=== PATIENT | female | born 2000 | race Caucasian/White ===

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

== ENCOUNTER 2022-09-03 10:38 | Emergency (ER) | payer MEDICAID ==
[~2022-09-03] VITALS: Ht 154.9 cm; Wt 39.0 kg
[2022-09-03 11:35] LABS: Basophils # (auto) 0 10 ^3/uL (0-0.2); Basophils % (auto) 0.6 % (0.0-2.0); Eosinophils # (auto) 0.1 10 ^3/uL (0-0.8); Eosinophils % (auto) 0.9 % (0.0-7.0); Hematocrit 38.7 % (36.0-46.0); Hemoglobin 12.8 g/dL (12.2-16.2); Lymphocytes # (auto) 2.1 10 ^3/uL (0.4-5.4); Lymphocytes % (auto) 33.6 % (10.0-50.0); Mean Corpuscular Hemoglobin 27.4 pg (28.0-32.0); Mean Corpuscular Hgb Conc. 33.2 g/dL (32.0-36.0); Mean Corpuscular Volume 82.4 fL (80.0-100.0); Monocytes # (auto) 0.5 10 ^3/uL (0-1.3); Monocytes % (auto) 7.6 % (0.0-12.0); Neutrophils # (auto) 3.6 10 ^3/uL (1.6-8.6); Neutrophils % (auto) 57.3 % (37.0-80.0); Nucleated Red Blood Cells % 0.1 %; Red Cell Distribution Width 14.4 % (11.8-14.3); White Blood Cell 6.3 10^3/uL (4.4-10.8)
[2022-09-03 13:34] LABS: Urine WBC None Seen /hpf (0 - 5)
[2022-09-03 14:01] LABS: Urine Bacteria NONE SEEN /hpf (None Seen); Urine Blood 3+ /uL (Negative); Urine Specific Gravity 1.011 (1.001-1.035)
[2022-09-03] MEDS ORDERED: RHO (D) IMMUNE GLOBULIN 300 MCG INJ IM ONE (14:15)
[2022-09-03 14:51] VITALS: BP 116/75
== END 2022-09-03 18:22 | disposition home or self-care (01) ==
LOC: ER 10:38
DX: O20.0 Threatened abortion (principal); R10.2 Pelvic and perineal pain; Z3A.01 Less than 8 weeks gestation of pregnancy
CPT/HCPCS: 36415; 81001; 84702; 85025; 86901

== ENCOUNTER 2023-09-10 18:20 | Observation (INO) | payer MEDICAID ==
[2023-09-11] MEDS ORDERED: PREN-96 PO (10:15)
== END 2023-09-10 19:43 | disposition home or self-care (01) ==
LOC: LDRP 18:20
PROVIDERS: ADMIT Obstetrics & Gynecology; ATTEND Obstetrics & Gynecology
DX: O62.9 Abnormality of forces of labor, unspecified (principal); Z3A.39 39 weeks gestation of pregnancy
CPT/HCPCS: 59025; 81002; 94760; G0378

== ENCOUNTER 2023-09-11 07:59 | Observation (INO) | payer MEDICAID ==
[2023-09-11] MEDS ORDERED: PREN-96 PO (10:15)
[2023-09-13 09:06] LABS: Neisseria gonorrhoeae, NAA Negative (Negative)
[2023-09-14 20:06] LABS: Chlamydia Trachomatis, NAA Positive (Negative)
== END 2023-09-11 10:25 | disposition home or self-care (01) ==
LOC: LDRP 07:59 → UNDOADMOB 07:59 → LDRP 08:11 → UNDODISOB 10:25
PROVIDERS: ADMIT Obstetrics & Gynecology; ATTEND Obstetrics & Gynecology
DX: Z34.83 Encounter for supervision of other normal pregnancy, third trimester (principal); Z3A.39 39 weeks gestation of pregnancy
CPT/HCPCS: 59025; 81002; 87491; 87591; 94760; G0378

== ENCOUNTER 2023-09-11 13:44 | Inpatient (IN) | payer MEDICAID ==
[~2023-09-11] VITALS: Ht 154.9 cm; Wt 52.2 kg
[~2023-09-11 13:44] MED LIST: PREN-96 PO
[2023-09-11] MEDS ORDERED: LIDOCAINE 2%HCL (LOCAL ANESTH.) INJ 20ML MDV IJ PRN (14:00)
[2023-09-11] MEDS ORDERED: BUTORPHANOL TARTRATE 2 MG/1 ML VIAL IV PRN ×2 (14:00)
[2023-09-11] MEDS ORDERED: NALOXONE HCL 0.4 MG/ML VIAL IV ONE (14:00)
[2023-09-11] MEDS ORDERED: ePHEDrine SULFATE 50 MG/ML AMP IV ONE (14:00)
[2023-09-11 15:00] LABS: INR 0.96 (0.9-1.15); Partial Thromboplastin Time 26.3 SEC (24.5-34.5); Prothrombin Time 10.2 sec (9.3-11.8)
[2023-09-11 15:01] LABS: Albumin 3.9 g/dL (3.2-4.8); Alkaline Phosphatase 211 U/L (46-116); Anion Gap 11 (5-15); Aspartate Aminotransferase 14 U/L (13-40); Calcium 9.2 mg/dL (8.5-10.1); Carbon Dioxide 21 mmol/L (20-30); Chloride 108 mmol/L (98-107); Glucose 78 mg/dL (74-106); Potassium 2.8 mmol/L (3.5-5.1); Sodium 140 mmol/L (136-145)
[2023-09-11 15:02] LABS: Alanine Aminotransferase < 9 U/L (7-40); BUN/Creatinine Ratio 8.2 (10.0-20.0); Bilirubin, Total 0.6 mg/dL (0.2-1.0); Blood Urea Nitrogen < 5 mg/dL (9-23); Total Protein 6.8 g/dL (5.7-8.2)
[2023-09-11] MEDS: LACTATED RINGER'S 1,000 ML IV ONE (15:13)
[2023-09-11] MEDS: ROPIVACAINE HCL 200 ML ONE (15:18)
[2023-09-11 15:24] LABS: Basophils # (auto) 0 10 ^3/uL (0-0.2); Basophils % (auto) 0.3 % (0.0-2.0); Eosinophils # (auto) 0 10 ^3/uL (0-0.8); Hematocrit 27.4 % (36.0-46.0); Hemoglobin 8.3 g/dL (12.2-16.2); Lymphocytes # (auto) 1.5 10 ^3/uL (0.4-5.4); Mean Corpuscular Hemoglobin 20.4 pg (28.0-32.0); Mean Corpuscular Hgb Conc. 30.4 g/dL (32.0-36.0); Mean Corpuscular Volume 67.3 fL (80.0-100.0); Monocytes # (auto) 0.6 10 ^3/uL (0-1.3); Monocytes % (auto) 5.6 % (0.0-12.0); Neutrophils % (auto) 79.1 % (37.0-80.0); Nucleated Red Blood Cells % 0.1 %; Red Blood Cells 4.07 10^6/uL (4.0-5.20); Red Cell Distribution Width 18.9 % (11.8-14.3); White Blood Cell 10.1 10^3/uL (4.4-10.8)
[2023-09-11] MEDS: LACTATED RINGER'S 1,000 ML IV SCH (15:34)
[2023-09-11] MEDS: DERMOPLAST 60ML BOTTLE TOP PRN (16:47)
[2023-09-11] MEDS: WITCH HAZEL-GLYCERIN PAD TOP PRN (16:47)
[2023-09-11] MEDS: PHISODERM TOP SOLN 240ML BTL TOP PRN (16:48)
[2023-09-11] MEDS ORDERED: LABETALOL HCL 5 MG/ML 4ML SYRINGE IV PRN (17:30)
[2023-09-11] MEDS ORDERED: hydrALAZINE HCL 20 MG/ML VL IV PRN (17:30)
[2023-09-11 18:27] LABS: Urine Bacteria FEW /hpf (None Seen); Urine Blood 2+ /uL (Negative); Urine Clarity Turbid (Clear); Urine Color Light-Yellow (Yellow); Urine Protein, UAD 1+ (Negative); Urine Specific Gravity 1.007 (1.001-1.035); Urine Urobilinogen Normal (Negative); Urine WBC 32 /hpf (0 - 5); Urine pH 6.5 (5.0-9.0)
[2023-09-11 18:38] LABS: Protein, Urine 95.7 mg/dL (0.0-11.9)
[2023-09-11 18:41] LABS: Amphetamine Screen, Urine Neg (NEGATIVE); Barbiturate Scree,Urine Neg (NEGATIVE); Benzodiazephine Screen, Urine Neg (NEGATIVE); Cannabinoid Screen, Urine Neg (NEGATIVE); Cocaine Screen, Urine Neg (NEGATIVE); Creatinine, Urine 64.57 mg/dL (30.0-125.0); Opiate Scree,Urine Neg (NEGATIVE); Phencyclidine Screen, Urine Neg (NEGATIVE); Urine Protein/Creatinine Ratio 1.48
[2023-09-11] MEDS ORDERED: miSOPROStol 100 mcg TAB SL PRN (18:45)
[2023-09-11] MEDS ORDERED: METHYLERGONOVINE MALEATE 0.2 MG/ML AMP IM PRN (18:45)
[2023-09-11] MEDS ORDERED: miSOPROStol 100 mcg TAB PR PRN (18:45)
[2023-09-11] MEDS ORDERED: CARBOPROST TROMETHAMINE 250 MCG/1ML VIAL IM PRN (18:45)
[2023-09-11] MEDS: ONDANSETRON HCL 4 MG/2 ML VIAL IV PRN (19:57)
[2023-09-11] MEDS ORDERED: GENTAMICIN PER PHARMACY 0 ML IV SCH (20:45)
[2023-09-11] MEDS: POTASSIUM CHL 20 Meq TABLET PO SCH (21:08)
[2023-09-11] MEDS: ACETAMINOPHEN 650 MG RECT SUPP PR PRN (21:43)
[2023-09-11] MEDS ORDERED: DIPHENOXYLATE W/ATROPINE 2.5 MG TAB PO SCH (22:00)
[2023-09-11] MEDS: GENTAMICIN SULFATE 260 MG in D5W 5% 100 ML IV SCH (22:02)
[2023-09-11] MEDS ORDERED: CLINDAMYCIN 900MG IV 50 ML IV ONE (23:00)
[2023-09-11] MEDS: CLINDAMYCIN 900MG IV 0 ML IV ONE (23:04)
[2023-09-11] MEDS ORDERED: MORPHINE SULF PF 5 MG/10 ML VIAL ONE (23:10)
[2023-09-11] MEDS: AMPICILLIN SOD 2GM INJ 2 GM in SODIUM CHL 0.9% 100 ML IV SCH (23:12)
[2023-09-11] MEDS ORDERED: LIDOCAINE 1% (LOCAL ANESTH.) PF 5ml SDV ONE (23:12)
[2023-09-11] MEDS ORDERED: LIDOCAINE HCL 2 %PF INJ 10ML AMP IJ ONE ×2 (23:14→23:22)
[2023-09-11] MEDS ORDERED: ePHEDrine SULFATE 50 MG/ML AMP ONE (23:32)
[2023-09-11] MEDS: AZITHROMYCIN 500MG/ 250ML 250 ML IV ONE (23:58)
[2023-09-12] MEDS: ROPIVACAINE HCL 200 ML ONE (01:34)
[2023-09-12] MEDS: LACT. RINGERS/OXYTOCIN 20UNITS 1,000 ML IV SCH (01:36)
[2023-09-12] MEDS: LACT. RINGERS/OXYTOCIN 20UNITS 500 ML IV ONE ×2 (02:47→03:09)
[2023-09-12] MEDS ORDERED: METHYLERGONOVINE MALEATE 0.2 MG/ML AMP IM PRN (03:00)
[2023-09-12] MEDS ORDERED: ONDANSETRON ODT 4 MG TAB PO PRN (03:00)
[2023-09-12] MEDS ORDERED: LACT. RINGERS/OXYTOCIN 20UNITS 500 ML IV ONE ×2 (03:00→03:30)
[2023-09-12] MEDS ORDERED: ACETAMINOPHEN 325 MG TAB PO PRN (03:00)
[2023-09-12 03:16] LABS: Eosinophils # (auto) 0 10 ^3/uL (0-0.8); Mean Corpuscular Volume 67.5 fL (80.0-100.0); Nucleated Red Blood Cells % 0.1 %; Red Cell Distribution Width 18.9 % (11.8-14.3)
[2023-09-12 03:19] LABS: Basophils # (auto) 0.1 10 ^3/uL (0-0.2); Basophils % (auto) 0.4 % (0.0-2.0); Hematocrit 27.1 % (36.0-46.0); Hemoglobin 8.4 g/dL (12.2-16.2); Lymphocytes % (auto) 5.2 % (10.0-50.0); Mean Corpuscular Hemoglobin 20.9 pg (28.0-32.0); Monocytes # (auto) 1.5 10 ^3/uL (0-1.3); Monocytes % (auto) 7.8 % (0.0-12.0); Neutrophils # (auto) 16.5 10 ^3/uL (1.6-8.6); Neutrophils % (auto) 86.6 % (37.0-80.0); Red Blood Cells 4.01 10^6/uL (4.0-5.20); White Blood Cell 19.1 10^3/uL (4.4-10.8)
[2023-09-12 03:35] LABS: Hypochromia Moderate; Platelet Estimate Adequate; Stomatocytes Few
[2023-09-12 03:36] LABS: Ovalocytes MANY; Polychromasia Slight
[2023-09-12 03:38] LABS: Magnesium 1.4 mg/dL (1.6-2.6)
[2023-09-12 03:39] LABS: Albumin 3.4 g/dL (3.2-4.8); Alkaline Phosphatase 184 U/L (46-116); Anion Gap 11 (5-15); Aspartate Aminotransferase 20 U/L (13-40); Calcium 8.9 mg/dL (8.7-10.4); Carbon Dioxide 19 mmol/L (20-30); Chloride 109 mmol/L (98-107); Glucose 103 mg/dL (74-106); Potassium 3.6 mmol/L (3.5-5.1); Sodium 139 mmol/L (136-145)
[2023-09-12 03:40] LABS: Alanine Aminotransferase < 9 U/L (7-40); BUN/Creatinine Ratio 5.9 (10.0-20.0); Bilirubin, Total 0.9 mg/dL (0.2-1.0); Blood Urea Nitrogen < 5 mg/dL (9-23); Phosphorus 2.5 mg/dL (2.4-5.1); Total Protein 6.3 g/dL (5.7-8.2)
[2023-09-12] MEDS: LABETALOL HCL 200 MG TAB PO ONE ×2 (03:58→06:05)
[2023-09-12] MEDS: IBUPROFEN 800 MG TAB PO SCH ×2 (03:59→10:16)
[2023-09-12] MEDS: AMMONIA 0.33 ML INHALANT IN ONE (04:31)
[2023-09-12 07:30] VITALS: BP 140/79; PULSE 79; RESP 18; RESP 20; TEMP 98; O2SAT 98
[2023-09-12] MEDS ORDERED: MAGNESIUM SULFATE 1GM/100ML 100 ML IV ONE (08:30)
[2023-09-12 08:45] VITALS: BP 116/72
[2023-09-12 08:53] LABS: Basophils # (auto) 0 10 ^3/uL (0-0.2); Basophils % (auto) 0.1 % (0.0-2.0); Eosinophils # (auto) 0 10 ^3/uL (0-0.8); Monocytes # (auto) 1.9 10 ^3/uL (0-1.3); Red Cell Distribution Width 18.8 % (11.8-14.3)
[2023-09-12 08:55] LABS: Hematocrit 22.4 % (36.0-46.0); Lymphocytes # (auto) 1.2 10 ^3/uL (0.4-5.4); Lymphocytes % (auto) 5.6 % (10.0-50.0); Mean Corpuscular Hemoglobin 20.6 pg (28.0-32.0); Mean Corpuscular Hgb Conc. 30.3 g/dL (32.0-36.0); Mean Corpuscular Volume 68.1 fL (80.0-100.0); Monocytes % (auto) 8.4 % (0.0-12.0); Neutrophils # (auto) 18.8 10 ^3/uL (1.6-8.6); Neutrophils % (auto) 85.9 % (37.0-80.0); Red Blood Cells 3.29 10^6/uL (4.0-5.20); White Blood Cell 21.9 10^3/uL (4.4-10.8)
[2023-09-12] MEDS: FERROUS SULFATE 325mg EC TAB PO SCH (08:55)
[2023-09-12 09:00] LABS: Chloride 111 mmol/L (98-107); Potassium 2.7 mmol/L (3.5-5.1); Sodium 140 mmol/L (136-145)
[2023-09-12 09:01] LABS: Anion Gap 8 (5-15); Calcium 8.6 mg/dL (8.5-10.1); Carbon Dioxide 21 mmol/L (20-30); Hemoglobin 6.8 g/dL (12.2-16.2)
[2023-09-12 09:06] LABS: Glucose 171 mg/dL (74-106)
[2023-09-12 09:13] LABS: BUN/Creatinine Ratio 6.9 (10.0-20.0); Blood Urea Nitrogen < 5 mg/dL (9-23)
[2023-09-12] MEDS: MAGNESIUM SULFATE 1GM/100ML 100 ML IV SCH (09:59)
[2023-09-12 11:00] VITALS: BP 124/82; PULSE 77; RESP 18; TEMP 98.1; O2SAT 98
[2023-09-12] MEDS: AMPICILLIN SOD 2GM INJ 2 GM in SODIUM CHL 0.9% 100 ML IV SCH (11:12)
[2023-09-12 15:20] VITALS: BP 136/74; PULSE 66; RESP 16; TEMP 97.9; O2SAT 98
[2023-09-12 15:47] LABS: Basophils # (auto) 0.1 10 ^3/uL (0-0.2); Eosinophils # (auto) 0 10 ^3/uL (0-0.8); Hemoglobin 7.3 g/dL (12.2-16.2); Mean Corpuscular Hgb Conc. 30.7 g/dL (32.0-36.0); Monocytes # (auto) 1.5 10 ^3/uL (0-1.3); Red Blood Cells 3.52 10^6/uL (4.0-5.20)
[2023-09-12 15:49] LABS: Basophils % (auto) 0.3 % (0.0-2.0); Hematocrit 23.8 % (36.0-46.0); Lymphocytes # (auto) 2.4 10 ^3/uL (0.4-5.4); Lymphocytes % (auto) 10.5 % (10.0-50.0); Mean Corpuscular Hemoglobin 20.7 pg (28.0-32.0); Mean Corpuscular Volume 67.5 fL (80.0-100.0); Monocytes % (auto) 6.5 % (0.0-12.0); Neutrophils # (auto) 18.9 10 ^3/uL (1.6-8.6); Neutrophils % (auto) 82.7 % (37.0-80.0); Red Cell Distribution Width 19.5 % (11.8-14.3); White Blood Cell 22.8 10^3/uL (4.4-10.8)
[2023-09-12 16:43] LABS: Alkaline Phosphatase 160 U/L (46-116); Anion Gap 6 (5-15); BUN/Creatinine Ratio 7.2 (10.0-20.0); Blood Urea Nitrogen 5 mg/dL (9-23); Calcium 8.9 mg/dL (8.5-10.1); Carbon Dioxide 24 mmol/L (20-30); Chloride 110 mmol/L (98-107); Glucose 127 mg/dL (74-106); Potassium 3.1 mmol/L (3.5-5.1); Sodium 140 mmol/L (136-145)
[2023-09-12 16:44] LABS: Albumin 2.9 g/dL (3.2-4.8); Aspartate Aminotransferase 20 U/L (13-40); Bilirubin, Total 0.4 mg/dL (0.2-1.0); Total Protein 5.1 g/dL (5.7-8.2)
[2023-09-12 16:46] LABS: Alanine Aminotransferase < 9 U/L (7-40)
[2023-09-12] MEDS: POTASSIUM CHL 20 Meq TABLET PO SCH ×2 (17:59→22:36)
[2023-09-12 19:00] VITALS: BP 131/64; PULSE 53; RESP 16; TEMP 98; O2SAT 97
[2023-09-12] MEDS: DOCUSATE SOD 100 MG CAP PO SCH (22:35)
[2023-09-12 23:30] VITALS: BP 143/81; PULSE 63; RESP 18; TEMP 97.9; O2SAT 97
[2023-09-13] VITALS (10 sets, daily range): BP systolic 132–152; BP diastolic 72–90; PULSE 58–83; RESP 16–18; TEMP 97.7–98.2; O2SAT 95–98
[2023-09-13] MEDS: GENTAMICIN SULFATE 260 MG in D5W 5% 100 ML IV ONE (02:28)
[2023-09-13 04:22] LABS: Basophils # (auto) 0 10 ^3/uL (0-0.2); Basophils % (auto) 0.2 % (0.0-2.0); Eosinophils # (auto) 0.1 10 ^3/uL (0-0.8); Hematocrit 21.4 % (36.0-46.0); Monocytes # (auto) 1.1 10 ^3/uL (0-1.3)
[2023-09-13 04:24] LABS: Eosinophils % (auto) 0.3 % (0.0-7.0); Lymphocytes # (auto) 2.6 10 ^3/uL (0.4-5.4); Lymphocytes % (auto) 14.6 % (10.0-50.0); Mean Corpuscular Hemoglobin 20.2 pg (28.0-32.0); Mean Corpuscular Hgb Conc. 30.1 g/dL (32.0-36.0); Mean Corpuscular Volume 67.2 fL (80.0-100.0); Monocytes % (auto) 6.2 % (0.0-12.0); Neutrophils # (auto) 14.1 10 ^3/uL (1.6-8.6); Neutrophils % (auto) 78.7 % (37.0-80.0); Red Blood Cells 3.19 10^6/uL (4.0-5.20); White Blood Cell 17.9 10^3/uL (4.4-10.8)
[2023-09-13 04:26] LABS: Hemoglobin 6.4 g/dL (12.2-16.2)
[2023-09-13 04:32] LABS: Albumin 2.6 g/dL (3.2-4.8); Alkaline Phosphatase 131 U/L (46-116); Anion Gap 5 (5-15); Aspartate Aminotransferase 19 U/L (13-40); BUN/Creatinine Ratio 11.3 (10.0-20.0); Blood Urea Nitrogen 6 mg/dL (9-23); Calcium 8.6 mg/dL (8.7-10.4); Carbon Dioxide 24 mmol/L (20-30); Chloride 110 mmol/L (98-107); Glucose 95 mg/dL (74-106); Potassium 3.9 mmol/L (3.5-5.1); Sodium 139 mmol/L (136-145)
[2023-09-13 04:33] LABS: Bilirubin, Total 0.3 mg/dL (0.2-1.0); Total Protein 4.7 g/dL (5.7-8.2)
[2023-09-13 04:34] LABS: Alanine Aminotransferase < 9 U/L (7-40)
[2023-09-13] MEDS: IBUPROFEN 800 MG TAB PO PRN (08:35)
[2023-09-13 13:06] LABS: RPR Non Reactive (Non Reactive)
[2023-09-13 15:38] LABS: Basophils # (auto) 0.1 10 ^3/uL (0-0.2); Eosinophils # (auto) 0.1 10 ^3/uL (0-0.8); Monocytes # (auto) 1.1 10 ^3/uL (0-1.3)
[2023-09-13 15:39] LABS: Basophils % (auto) 0.4 % (0.0-2.0); Eosinophils % (auto) 0.5 % (0.0-7.0); Hemoglobin 9.8 g/dL (12.2-16.2); Lymphocytes # (auto) 2.1 10 ^3/uL (0.4-5.4); Lymphocytes % (auto) 11.3 % (10.0-50.0); Mean Corpuscular Hemoglobin 22.3 pg (28.0-32.0); Mean Corpuscular Hgb Conc. 31.5 g/dL (32.0-36.0); Mean Corpuscular Volume 70.8 fL (80.0-100.0); Monocytes % (auto) 5.7 % (0.0-12.0); Neutrophils # (auto) 15.6 10 ^3/uL (1.6-8.6); Neutrophils % (auto) 82.1 % (37.0-80.0); Nucleated Red Blood Cells % 0.2 %; Red Blood Cells 4.38 10^6/uL (4.0-5.20); White Blood Cell 18.9 10^3/uL (4.4-10.8)
[2023-09-13 15:50] LABS: Red Cell Distribution Width 20.6 % (11.8-14.3)
[2023-09-14 18:06] LABS: Treponema pallidum Ab (FTA-Ab) Non Reactive (Non Reactive)
== END 2023-09-13 17:15 | disposition home or self-care (01) | DRG 560 ==
LOC: LDRP 13:44 → OBSVTOIN 13:45 → LDRP 13:45
PROVIDERS: ADMIT Obstetrics & Gynecology; ATTEND Obstetrics & Gynecology
PROC: 10E0XZZ Delivery of Products of Conception, External Approach (ICD-10-PCS; principal; 2023-09-12)
PROC: 0HQ9XZZ Repair Perineum Skin, External Approach (ICD-10-PCS; 2023-09-12)
PROC: 3E0R3BZ Introduction of Anesthetic Agent into Spinal Canal, Percutaneous Approach (ICD-10-PCS; 2023-09-12)
PROC: 00HU33Z Insertion of Infusion Device into Spinal Canal, Percutaneous Approach (ICD-10-PCS; 2023-09-12)
PROC: 30233N1 Transfusion of Nonautologous Red Blood Cells into Peripheral Vein, Percutaneous Approach (ICD-10-PCS; 2023-09-13)
DX: O14.04 Mild to moderate pre-eclampsia, complicating childbirth (principal); Z37.0 Single live birth; O41.1230 Chorioamnionitis, third trimester, not applicable or unspecified; O71.4 Obstetric high vaginal laceration alone; O75.2 Pyrexia during labor, not elsewhere classified; E83.42 Hypomagnesemia; O75.89 Other specified complications of labor and delivery; O99.344 Other mental disorders complicating childbirth; O77.0 Labor and delivery complicated by meconium in amniotic fluid; O99.284 Endocrine, nutritional and metabolic diseases complicating childbirth; O76 Abnormality in fetal heart rate and rhythm complicating labor and delivery; E87.6 Hypokalemia; O90.81 Anemia of the puerperium; Z3A.39 39 weeks gestation of pregnancy
CPT/HCPCS: 36415; 36430; 59025; 59409; 62282; 80048; 80053; 80170; 80307; 81001; 81002; 82570; 83605; 83735; 84100; 84156; 85025; 85610; 85730; 86592; 86803; 86850; 86870; 86900; 86901; 86922; 94760; 94762; 96360; 96361; 96365; 96366; 96374; G0378; J2405; J2590; J3490; J7060

== ENCOUNTER 2024-04-10 16:20 | Emergency (ER) | payer MEDICAID ==
[~2024-04-10] VITALS: Ht 154.9 cm; Wt 38.8 kg
--- NOTE | 2024-04-10 17:36 | ED.PDOC ---
History of Present Illness HPI Comments 23F presents to the ER w/ and no prior Hx associated to the c/c of ABD pain. Pt reports on the RLQ ABD pain starting yesterday morning but worsened today w/ it being constant and radiating to the back. Pt is 13 weeks and has been having /D as well. Pt tried taking Tylenol for the pain but was unsuccessful. pain type of a 7/10. Pt is w/ the first being a miscarriage Denies chills, fever, N/V, SOB, CP or other associated symptom's, modifiers, or recent injuries or sick contact at this time. Chief Complaint: Urinary Time Seen by MD: 17:20 Primary Care Provider: RAMU Harding Notes: Nurses Notes, Medications, Allergies Allergies: Coded Allergies: Sulfamethoxazole w/Trimethoprim (Verified Allergy, Mild, 09/11/23) Pt. states gets nausea, vomiting, and stomach cramps. Home Meds Active Scripts Nitrofurantoin Monohydrate Mac (Macrobid) 100 Mg Cap, 100 MG PO BID for 5 Days, #10 CAP Prov:KELECHI MCMANUS MD 04/10/24 Reported Medications Vit W/ Ferrous Fumara ( One Daily) Daily Tab, 1 TAB PO DAILY, #90 TAB 3 Refills 09/11/23 Information Source: Patient, Spouse Mode of Arrival: Ambulatory Severity: Moderate Timing: Hours Duration: Since onset, Hours Prehospital treatment: None Associated signs and symptoms Right-sided abdominal pain Past Medical History PAST MEDICAL HISTORY: Denies Past Medical History (Other): Surgical History: Denies all surgeries TILE FITTER History: Denies all TILE FITTER Hx Family History Family History: Reviewed,noncontributory to illness, No family hx of DM Social History Smoker: Non-Smoker Alcohol: Denies ETOH Use Drugs: Denies Drug Use Lives In: Home Constitutional: denies: chills, diaphoresis, fatigue, fever, malaise, sweats, weakness, others EENTM: denies: blurred vision, double vision, ear bleeding, ear discharge, ear drainage, ear pain, ear ringing, eye pain, eye redness, hearing loss, mouth pain, mouth swelling, nasal discharge, nose bleeding, nose congestion, nose pain, photophobia, tearing, throat pain, throat swelling, voice changes, others Respiratory: denies: cough, hemoptysis, orthopnea, SOB at rest, shortness of breath, SOB with excertion, stridor, wheezing, others Cardiovascular: denies: chest pain, dizzy spells, diaphoresis, Dyspnea on exertion, edema, irregular heart beat, left arm pain, lightheadedness, palpitations, PND, syncope, others Gastrointestinal: reports: abdominal pain, diarrhea; denies: abdomen distended, blood streaked bowels, constipated, dysphagia, difficulty swallowing, hematemesis, melena, nausea, poor appetite, poor fluid intake, rectal bleeding, rectal pain, vomiting, others Genitourinary: reports: ; denies: abnormal vagina bleeding, burning, dyspareunia, dysuria, flank pain, frequency, hematuria, incontinence, pain, vagina discharge, urgency, others Neurological: denies: dizziness, fainting, headache, left sided numbness, left sided weakness, numbness, paresthesia, pre-existing deficit, right sided numbness, right sided weakness, seizure, speech problems, tingling, tremors, weakness, others Musculoskeletal: denies: back pain, gout, joint pain, joint swelling, muscle pain, muscle stiffness, neck pain, others Integumetry: denies: bruises, change in color, change in hair/nails, dryness, laceration, lesions, lumps, rash, wounds, others Allergic/Immunocompromised: denies: Difficulty Healing, Frequent Infections, Hives, Itching, others Hematologic/Lymphatic: denies: anemia, blood clots, easy bleeding, easy bruising, swollen glands, others Endocrine: denies: excessive hunger, excessive sweating, excessive thirst, excessive urination, flushing, intolerance to cold, intolerance to heat, unexplained weight gain, unexplained weight loss, others Psychiatric: denies: anxiety, bipolar disorder, depression, hopeless, panic disorder, schizophrenia, sleepless, suicidal, others All Other Systems: Reviewed and Negative Physical Exam General Appearance: Mild Distress HEENT: Normal ENT Inspection, Pharynx Normal, TMs Normal Neck: Full Range of Motion, Non-Tender, Normal, Normal Inspection Respiratory: Chest Non-Tender, Lungs Clear, No Accessory Muscle Use, No Respiratory Distress, Normal Breath Sounds Cardiovascular: No Edema, No JVD, No Murmur, No Gallop, Normal Peripheral Pulses, Regular Rate/Rhythm Breast Exam: Deferred Gastrointestinal: No Organomegaly, No Pulsatile Mass, Normal Bowel Sounds, RLQ, RUQ, Soft, Tenderness Genitalia: Deferred Pelvic: Deferred Rectal: Deferred Extremities: No calf tenderness, Normal capillary refill, Normal inspection, No rmal range of motion, Non-tender, No pedal edema Musculoskeletal : Apperance: Normal Neurologic: Alert, book author II-XII nml as Tested, No Motor Deficits, Normal Affect, Normal Mood, No Sensory Deficits Cerebellar Function: Normal Reflexes: Normal Skin: Dry, Normal Color, Warm Lymphatic: No Adenopathy Was a procedure done? Was a procedure done?: No Differential Dx Considerations may include: UTI, threatened , generalized weakness, dehydration X-Ray, Labs, Meds, VS Vital Signs Date Time Temp Pulse Resp B/P (MAP) Pulse Ox O2 Delivery O2 Flow Rate FiO2 04/10/24 16:56 97.4 84 17 119/67 (84) 100 Lab Test 04/10/24 17:53 04/10/24 17:00 Range/Units Beta HCG, Quantitative 30266.3 H 1.5-4.2 mIU/mL Urine Color Colorless Yellow Urine Clarity Ex.turbid Clear Urine pH 7.0 5.0-9.[address] [place] 1.013 1.001-1.035 Urine Protein Negative Negative Urine Ketones 1+ H Negative Urine Blood Trace H Negative /uL Urine Nitrite Negative Negative Urine Bilirubin Negative Negative Urine Urobilinogen Normal Negative mg/dL Urine Leukocyte Esterase Trace Negative /uL Urine RBC 13 0 - 4 /hpf Urine WBC 2 0 - 5 /hpf Urine Squamous Epithelial Cells Few <5 /hpf Urine Amorphous Crystals Few None Seen /hpf Urine Bacteria Few H None Seen /hpf Urine Mucus Few None Seen Urine Glucose Normal Normal mg/dL The urine test [place] [address] An ultrasound of the pelvis shows: IMPRESSION: 1. IUP single live fetus 13 weeks 1 day AUA corresponding to an DONNIE of 10/15/2024. 2. FHR: 157 bpm. At this time, the patient was being discharged The patient was given a prescription of Macrobid The patient will return to the emergency department's the condition worsens. Images Reviewed?: Images reviewed and evaluated by me Time of 1ST Reevaluation: 17:50 Reevaluation 1ST: Unchanged Patient Education/Counseling: Diagnosis, Treatment, Prognosis, Need For Follow Up Family Education/Counseling: Diagnosis, Treatment, Prognosis, Need For Follow Up Departure 1 Departure Time of Disposition: 18:49 Impression: Primary Impression: Abdominal pain in Qualified Codes: O26.899 - Other specified related conditions, unspecified trimester; R10.9 - Unspecified abdominal pain Additional Impression: UTI (urinary tract infection) Qualified Codes: N30.00 - Acute cystitis without hematuria Disposition: HOME / SELF CARE / HOMELESS Condition: Fair e-Prescriptions Nitrofurantoin Monohydrate Mac (Macrobid) 100 Mg Cap 100 MG PO BID for 5 Days, #10 CAP Prov: KELECHI MCMANUS MD 04/10/24 Discharged With: Self Critical Care Note Critical Care Time?: No Stability Stability form required: No Heart Score Heart Score: Heart Score Response (Comments) Value History N/A 0 EKG N/A 0 Age N/A 0 Risk Factors N/A 0 Troponin N/A 0 Total 0 I personally scribed for KELECHI MCMANUS MD ([email or web address]) on 04/10/24 at 17:36. Electronically submitted by Eduardo Carpenter ([email or web address]). KELECHI MCMANUS MD Apr 10, 2024 17:36
[2024-04-10 17:45] LABS: Urine Amorphous Crystal FEW /hpf (None Seen); Urine Bacteria FEW /hpf (None Seen); Urine Blood TRACE /uL (Negative); Urine Clarity Ex.Turbid (Clear); Urine Color Colorless (Yellow); Urine Mucus FEW (None Seen); Urine Protein, UAD Negative (Negative); Urine Specific Gravity 1.013 (1.001-1.035); Urine Squamous Epithelial Cell FEW /hpf (<5); Urine Urobilinogen Normal (Negative); Urine WBC 2 /hpf (0 - 5)
--- NOTE | 2024-04-10 17:59 | DVH ---
OB ULTRASOUND <14 WEEKS: HISTORY: pain TECHNIQUE: Multiple real-time grayscale sonographic images of the pelvis with duplex Doppler color f low, spectral and M-mode analysis. TRANSDUCERS: Transabdominal FINDINGS: The uterus measures 10.11 x 10.04 x 10.52 cm. Right ovary not visualized Left ovary not visualized IUP single live fetus at 13 weeks 1 day average ultrasound age based on mean crown-rump length of 6.8 6 cm. heart rate detected at 100 7 beats per minute. Small anechoic area in the placenta measuring 6 x 7 x 9 mm. IMPRESSION: 1. IUP single live fetus 13 weeks 1 day AUA corresponding to an DONNIE of 10/15/2024. 2. FHR: 157 bpm.
[2024-04-10] MEDS ORDERED: NITR-87 PO (18:51)
[2024-04-10 18:58] VITALS: BP 123/70; PULSE 74; RESP 16; TEMP 97.9; O2SAT 100
== END 2024-04-10 19:03 | disposition home or self-care (01) ==
LOC: ER 16:20
DX: O23.41 Unspecified infection of urinary tract in pregnancy, first trimester (principal); N39.0 Urinary tract infection, site not specified; O26.891 Other specified pregnancy related conditions, first trimester; M54.9 Dorsalgia, unspecified; R10.2 Pelvic and perineal pain; Z79.899 Other long term (current) drug therapy; Z3A.13 13 weeks gestation of pregnancy; Z88.1 Allergy status to other antibiotic agents; Z88.2 Allergy status to sulfonamides
CPT/HCPCS: 36415; 76801; 81001; 84702

== ENCOUNTER 2024-07-04 12:14 | Observation (INO) | payer MEDICAID ==
[~2024-07-04 12:14] MED LIST changes: +NITR-87 PO
--- NOTE | 2024-07-04 15:24 | DVH ---
EXAM: US OBSTERICAL LIMITED CLINICAL HISTORY: cramping/ COMPARISON: 04/10/2024 TECHNIQUE: Grayscale, color-flow Doppler, and spectral Doppler ultrasound of the pelvis is performed by transabdominal and transvaginal technique. Findings/Impression: Single live intrauterine in vertex presentation with heart rate of 145 bpm. Cervical os appears closed and measures 4.3 cm in length. Placenta is posterior in location without evidence of previa or abruption. CRYSTAL 9.9 cm, MVP 3.3 cm. Board Winder notes possible contraction appreciated.
--- NOTE | 2024-07-05 00:09 | DVHDS2 ---
Discharge Summary Date of Admission Jul 04, 2024 at 12:14 Date of Discharge: Jul 04, 2024 Admitting Diagnosis 25 wks decreased movement, cramping Brief Hx & Hospital Course: nst us Consults/Reason for consult none Operations or Procedures none Condition at Discharge: Good Final Diagnosis/Problems List reasuring fht and us 25 wks Discharge Disposition: Home SNF Discharge Will this Physician continue t: No Discharge Instruct/Medications Diet: Regular Activity: No Restrictions, As Tolerated Activity comment: kick counts labor precautions Follow Up/Referral: as scheduled Discharge Statement: "Patient was advised to return to the ER or call 911 if any headaches, dizziness, shortness of breath, chest pain, abdominal pain, bleeding, fevers, or worsening of medical condition. Patient was counseled about treatment plan, medications, possible side effects, patientverbalized understanding. All questions were answered to the best of my ability. This discharge took greater then 30 minutes in planning, reviewing documentation, counseling the patient, and discussing with other team members." ASSESSMENT ASSESSMENT Assessment Visit Coding OBGYN Date of Service: Jul 04, 2024 Billing Provider: JOSE L RAMIREZ DO CREDIT RESOLUTION REPRESENTATIVE Common Visit Codes: 93506-PGS/OBS SAME DATE (LOW), 81880-VNK/OBS SAME DATE (MOD), 85591-FWW/OBS SAME DATE (HIGH) CREDIT RESOLUTION REPRESENTATIVE Procedure Codes: 55471-94- NON-STRESS TEST JOSE L RAMIREZ DO Jul 05, 2024 00:09
== END 2024-07-04 15:45 | disposition home or self-care (01) ==
LOC: UNDOADMOB 12:14 → LDRP 12:14 → UNDODISOB 15:45
PROVIDERS: ADMIT Obstetrics & Gynecology; ATTEND Obstetrics & Gynecology
DX: O36.8120 Decreased fetal movements, second trimester, not applicable or unspecified (principal); O62.9 Abnormality of forces of labor, unspecified; Z98.890 Other specified postprocedural states; Z79.899 Other long term (current) drug therapy; Z3A.25 25 weeks gestation of pregnancy
CPT/HCPCS: 59025; 76815; 76817; 81002; 94760; G0378

== ENCOUNTER 2024-10-04 09:05 | Inpatient (IN) | payer MEDICAID ==
[~2024-10-04] VITALS: Ht 162.6 cm; Wt 68.0 kg
[2024-10-04] MEDS ORDERED: PENICILLIN G POT 5MIL/D5 50ML 50 ML IV ONE (09:15)
[2024-10-04] MEDS ORDERED: LIDOCAINE 2%HCL (LOCAL ANESTH.) INJ 20ML MDV IJ PRN (09:15)
[2024-10-04] MEDS ORDERED: WITCH HAZEL-GLYCERIN PAD TOP PRN (09:15)
[2024-10-04] MEDS ORDERED: NALBUPHINE HCL 10 MG/1ml INJECTION IV PRN (09:15)
[2024-10-04] MEDS ORDERED: PHISODERM TOP SOLN 240ML BTL TOP PRN (09:15)
[2024-10-04] MEDS ORDERED: DERMOPLAST 60ML BOTTLE TOP PRN (09:15)
[2024-10-04] MEDS ORDERED: NALBUPHINE HCL 10 MG/1ml INJECTION IM PRN (09:15)
[2024-10-04] MEDS ORDERED: MORPHINE SULF PF 5 MG/10 ML VIAL ONE (09:41)
[2024-10-04] MEDS ORDERED: fentaNYL CITRATE 100 MCG/2 ML VL ONE (09:41)
[2024-10-04 09:42] LABS: Basophils # (auto) 0.1 10 ^3/uL (0-0.2); Eosinophils # (auto) 0 10 ^3/uL (0-0.8); Eosinophils % (auto) 0.2 % (0.0-7.0); Mean Corpuscular Hgb Conc. 32.5 g/dL (32.0-36.0); Monocytes # (auto) 0.9 10 ^3/uL (0-1.3); Neutrophils # (auto) 9.7 10 ^3/uL (1.6-8.6); Nucleated Red Blood Cells % 0.1 %; Red Blood Cells 4.23 10^6/uL (4.0-5.20)
[2024-10-04 09:44] LABS: Basophils % (auto) 0.6 % (0.0-2.0); Hematocrit 30.3 % (36.0-46.0); Hemoglobin 9.8 g/dL (12.2-16.2); Lymphocytes % (auto) 15.7 % (10.0-50.0); Mean Corpuscular Hemoglobin 23.2 pg (28.0-32.0); Mean Corpuscular Volume 71.5 fL (80.0-100.0); Monocytes % (auto) 6.7 % (0.0-12.0); Neutrophils % (auto) 76.8 % (37.0-80.0); Platelet Count (auto) 258 10^3/uL (140-450); Red Cell Distribution Width 16.8 % (11.8-14.3); White Blood Cell 12.6 10^3/uL (4.4-10.8)
[2024-10-04] MEDS: NALOXONE HCL 0.4 MG/ML VIAL IV ONE (09:45)
[2024-10-04] MEDS: ePHEDrine SULFATE 50 MG/ML AMP ONE (09:48)
[2024-10-04 09:59] LABS: Anion Gap 13 (5-15); Bilirubin, Total 0.6 mg/dL (0.2-1.0); Calcium 9.4 mg/dL (8.7-10.4); Carbon Dioxide 22 mmol/L (20-31); Glucose 88 mg/dL (74-106); Sodium 142 mmol/L (136-145); Total Protein 6.5 g/dL (5.7-8.2)
[2024-10-04 10:03] LABS: Alanine Aminotransferase < 9 U/L (7-40); Alkaline Phosphatase 148 U/L (46-116); Aspartate Aminotransferase 12 U/L (13-40); BUN/Creatinine Ratio 8.5 (10.0-20.0); Blood Urea Nitrogen < 5 mg/dL (9-23); Chloride 107 mmol/L (98-107); Potassium 3.4 mmol/L (3.5-5.1)
[2024-10-04] MEDS ORDERED: ONDANSETRON HCL 4 MG/2 ML VIAL IV PRN (10:15)
[2024-10-04] MEDS ORDERED: DexAMETHasone SOD PHOS 10MG/1ML VIAL INJ IV PRN (10:15)
[2024-10-04] MEDS: NALBUPHINE HCL 10 MG/1ml INJECTION IV ONE (10:15)
[2024-10-04] MEDS ORDERED: NALOXONE HCL 0.4 MG/ML VIAL IV PRN (10:15)
[2024-10-04] MEDS: LACTATED RINGER'S 1,000 ML IV SCH (10:23)
[2024-10-04 10:30] LABS: Urine Bacteria None Seen /hpf (None Seen)
[2024-10-04 10:38] LABS: Urine Blood Negative /uL (Negative); Urine Clarity Clear (Clear); Urine Color Light-Yellow (Yellow); Urine Protein, UAD Negative (Negative); Urine Specific Gravity 1.005 (1.001-1.035); Urine Squamous Epithelial Cell FEW /hpf (<5); Urine Urobilinogen Normal (Negative); Urine WBC 1 /HPF (0-5); Urine pH 7.5 (5.0-9.0)
[2024-10-04 10:39] LABS: INR 0.95 (0.9-1.15); Prothrombin Time 10.1 sec (9.3-11.8)
[2024-10-04 10:54] LABS: Amphetamine Screen, Urine Neg (NEGATIVE); Barbiturate Scree,Urine Neg (NEGATIVE); Benzodiazephine Screen, Urine Neg (NEGATIVE); Cannabinoid Screen, Urine Neg (NEGATIVE); Cocaine Screen, Urine Neg (NEGATIVE); Opiate Scree,Urine Neg (NEGATIVE); Phencyclidine Screen, Urine Neg (NEGATIVE)
--- NOTE | 2024-10-04 11:32 | DVHHP2 ---
OB CC & HPI Date Date of Admission: Oct 04, 2024 Patient Identification: : 3 Para: 1 EDC: Oct 12, 2024 EGA: 38.6 Chief Complaints: Reason for admission: active labor Admission Nurse Assessment Rev: Yes History of Present Complaints 24yo IUP@38.6wks presents in active labor. Pt reports regular UCs since this morning. Wants an epidural. Denies LOF/VB/DAVE/vision changes/RUQ pain. Endorses +FM. PNC: Routine PNC at [facility] with Dr Bhakta, adequate visits, PNC complicated by iron deficiency anemia. GTT wnl, dating based on LMP c/w 13.1wk sono, GBS negative. OB hx: #1 SAB in 2022 #2 in 2023, pt reports HTN, unsure diagnosis, no PPH but had blood transfusion due to low Hgb #3 current Past Medical History Cardiac: No pertinent Hx Pulmonary: No pertinent Hx Central Nervous System: No pertinent Hx GI: No pertinent Hx Hemotology/Oncology: No pertinent Hx Hepatobiliary: No pertinent Hx Psychiatric: No pertinent Hx Musculoskeletal: No pertinent Hx Rheumotologic: No pertinent Hx Infectious Disease: No peritnent Hx ENT: No pertinent Hx Renal/: No pertinent Hx Endocrine: No pertinent Hx Dermatology: No pertinent Hx Past Surgical History: No pertinent Hx OB History OB History Care: Good Care Ultrasounds: Normal mid trimester US Obstetrical Complications: None Medical Complications: None Allergies: Coded Allergies: Sulfamethoxazole w/Trimethoprim (Verified Allergy, Mild, 09/11/23) Pt. states gets nausea, vomiting, and stomach cramps. Home Meds Active Scripts Nitrofurantoin Monohydrate Mac (Macrobid) 100 Mg Cap, 100 MG PO BID for 5 Days, #10 CAP Prov:KELECHI MCMANUS MD 04/10/24 Reported Medications Vit W/ Ferrous Fumara ( One Daily) Daily Tab, 1 TAB PO DAILY, #90 TAB 3 Refills 09/11/23 Home Meds PNV, baby ASA Current Medications Current Medications Medications (Trade) Dose Ordered Sig/Umair Route PRN Reason Start Time Stop Time Status Last Admin Lactated Ringer's 1,000 ml @ 125 mls/hr Q8H IV 10/04/24 09:15 10/04/24 10:24 Nalbuphine HCl (Nubain) 10 mg Q4HP PRN IM MODERATE PAIN (4-6 PAIN SCALE) 10/04/24 09:15 UNV Nalbuphine HCl (Nubain) 10 mg Q4HP PRN IV MODERATE PAIN (4-6 PAIN SCALE) 10/04/24 09:15 Penicillin G Potassium [id number] units/Dextrose 50 ml @ 100 mls/hr Q4H IV 10/04/24 13:15 Witch Alicia (Tucks) 1 pad PRN PRN TOP PERINEAL AREA DISCOMFORT 10/04/24 09:15 Sodium Lauryl Sulfate (Phisoderm) 240 ml PRN PRN TOP PERINEAL AREA DISCOMFORT 10/04/24 09:15 Benzocaine (Dermoplast) 1 applic PRN PRN TOP PERINEAL AREA DISCOMFORT 10/04/24 09:15 Lidocaine HCl (Xylocaine) 20 ml ONCE PRN IJ PERINEAL AREA DISCOMFORT 10/04/24 09:15 Ondansetron HCl (Zofran) 4 mg Q4HPRN PRN IV NAUSEA / VOMITING 10/04/24 09:15 Diphenhydramine HCl (Benadryl Injection) 25 mg Q4HP PRN IV FOR ITCHING 10/04/24 10:15 Ondansetron HCl (Zofran) 4 mg Q4HP PRN IV NAUSEA / VOMITING 10/04/24 10:15 Naloxone HCl (Narcan) 0.2 mg Q5M PRN IV For respirations < than 10/min 10/04/24 10:15 10/04/24 10:33 DC Dexamethasone Sodium Phosphate (Decadron Injection) 10 mg ELIGIBILITY CLERK PRN IV FOR ITCHING 10/04/24 10:15 10/04/24 10:33 DC Family & Social History Family/Social History Past Family/Social History: Denies Blood Type: O+ Rubella: immune RPR/VDRL: Negative GBS Status: Negative HBsAG: Negative Review of Systems Constitutional: No symptom reported Ears, Nose, & Throat: No symptom reported Eyes: No symptom reported Pulmonary/Respiratory: No symptom reported Cardiovascular: No symptom reported Gastrointestinal: No symptom reported Genitourinary: No symptom reported Musculoskeletal: No symptom reported Skin: No symptom reported Psychiatric: No symptom reported Endocrine: No symptom reported Hemotologic/Lymphatic: No symptom reported OB Admission Exam Physical Exam Vitals: VSS, see chart EFW in office on 09/23/24, 6lbs 1oz HEENT: TMs Normal, Fontanelles Normal, Nasal Mucosa Normal, Eyes non-injected, Oropharynx Normal, PERRLA, Moist Membranes, EOMI Heart: Rhythm Normal Lungs: Clear Abdomen: Gravid Extremities: Normal Reflexes: Normal Pelvic Exam: Done by RN Cervical Dilatation: 7cm Effacement: Other (80%) Station: -2 Membranes: Intact Heart Rate: 150's Accelerations: Accelerations Present Decelerations: No Decelerations Fpc Variability: Average (6-25) Contractions on Admission: < 5 Minutes Apart Intensity: Moderate OB Plan Plan Admitting Diagnosis: 24yo IUP@38.6wks Active labor Category I EFM Intact Membranes GBS negative Plan: Expectant Management Other Plan: Admit to L&D Informed consent obtained Expectant management for now due to frequent UCs monitoring per order Routine labs ordered Pain mgmt PRN Frequent position changes in and out of bed encouraged Limit SVE unless necessary Intrauterine resuscitation PRN Anticipate CNM will consult with Dr. Bhakta PRN Visit Coding OBGYN Date of Service: Oct 04, 2024 Billing Provider: MIGEL CONNELL CNM TOOLING SPECIALIST Common Visit Codes: [id number] INP/OBS CARE (MOD) TOOLING SPECIALIST Procedure Codes: 31421-72- NON-STRESS TEST ANSLEY PRABHAKAR STUDENTMDW Oct 04, 2024 11:32
[2024-10-04] MEDS: ROPIVACAINE HCL 200 ML ONE (11:51)
[2024-10-04] MEDS: ONDANSETRON HCL 4 MG/2 ML VIAL ONE (11:51)
[2024-10-04] MEDS: ONDANSETRON HCL 4 MG/2 ML VIAL IV PRN (11:52)
[2024-10-04] MEDS ORDERED: PENICILLIN G POTASSIUM 2,500,000 UNITS in D5W 5% 50 ML IV SCH (13:15)
--- NOTE | 2024-10-04 13:18 | DVHPN2 ---
CNM Labor Progress Note Date and Time Seen Date Seen: Oct 04, 2024 Time Seen: 12:45 Objective Vital Signs VSS, see chart Monitoring Method Monitoring Method: External Heart Rate Heart Rate Baseline: 120 Heart Rate Variability: Moderate Presence of FHR Accelerations: Yes Presence of FHR Decelerations: No Contractions Contractions Frequency: Other (2-4 min) Contractions Intensity: Moderate Contractions Resting Tone: Relaxed Membranes Membranes: Ruptured (AROM with patient consent) Amniotic Fluid Color: Clear Vaginal Exam Vag Exam Deferred: No Vaginal Exam Dilation: 8 Vaginal Exam Effacement: 90 Vaginal Exam Station: -1 Vaginal Exam Presentation: VTX Vaginal Exam Show: None Medications Medications - Pitocin: No Medication - Epidural: Yes Lab Results Lab Results Current Medications Medications (Trade) Dose Ordered Sig/Umair Start Time Stop Time Status Last Admin Dose Admin Lactated Ringer's 1,000 ml @ 125 mls/hr Q8H 10/04/24 09:15 10/04/24 10:24 125 MLS/HR Nalbuphine HCl (Nubain) 10 mg Q4HP PRN 10/04/24 09:15 Penicillin G Potassium 50 ml @ 100 mls/hr ONCE ONCE 10/04/24 09:15 10/04/24 09:44 DC Penicillin G Potassium [id number] units/Dextrose 50 ml @ 100 mls/hr Q4H 10/04/24 13:15 Witch Alicia (Tucks) 1 pad PRN PRN 10/04/24 09:15 Sodium Lauryl Sulfate (Phisoderm) 240 ml PRN PRN 10/04/24 09:15 Benzocaine (Dermoplast) 1 applic PRN PRN 10/04/24 09:15 Lidocaine HCl (Xylocaine) 20 ml ONCE PRN 10/04/24 09:15 Ondansetron HCl (Zofran) 4 mg Q4HPRN PRN 10/04/24 09:15 10/04/24 11:52 4 MG Oxytocin 500 ml @ 999 mls/hr Q31M ONCE 10/04/24 09:30 10/04/24 10:00 DC Oxytocin 500 ml @ 125 mls/hr Q4H ONCE 10/04/24 10:00 10/04/24 13:59 Naloxone HCl (Narcan) 0.2 mg PRN ONCE 10/04/24 09:45 10/04/24 10:01 DC Ephedrine Sulfate (ePHEDrine SULFATE) 10 mg PRN ONCE 10/04/24 09:45 10/04/24 10:01 DC Diphenhydramine HCl (Benadryl Injection) 25 mg Q4HP PRN 10/04/24 10:15 Ondansetron HCl (Zofran) 4 mg Q4HP PRN 10/04/24 10:15 Nalbuphine HCl (Nubain) 10 mg RECYCLING COLLECTIONS DRIVER ONCE 10/04/24 10:15 10/04/24 10:33 DC Naloxone HCl (Narcan) 0.2 mg Q5M PRN 10/04/24 10:15 10/04/24 10:33 DC Dexamethasone Sodium Phosphate (Decadron Injection) 10 mg RECYCLING COLLECTIONS DRIVER PRN 10/04/24 10:15 10/04/24 10:33 DC Potassium Chloride (Klor-Con Tablet) 40 meq ONCE ONCE 10/04/24 11:00 10/04/24 11:14 DC Laboratory Tests Test 10/04/24 10:00 10/04/24 09:30 Range/Units Urine Color Light-yellow Yellow Urine Clarity Clear Clear Urine pH 7.5 5.0-9.0 Urine Specific [place] 1.005 1.001-1.035 Urine Protein Negative Negative Urine Ketones Negative Negative Urine Blood Negative Negative /uL Urine Nitrite Negative Negative Urine Bilirubin Negative Negative Urine Urobilinogen Normal Negative mg/dL Urine Leukocyte Esterase Negative Negative /uL Urine RBC 1 0 - 4 /hpf Urine Microscopic WBC 1 0-5 /HPF Urine Squamous Epithelial Cells Few <5 /hpf Urine Bacteria None seen None Seen /hpf Urine Glucose Normal Normal mg/dL Urine Opiates Screen Neg NEGATIVE Urine Fentanyl Screen Neg NEGATIVE Urine Barbiturates Screen Neg NEGATIVE Urine Phencyclidine Screen Neg NEGATIVE Urine Amphetamines Screen Neg NEGATIVE Urine Benzodiazepines Screen Neg NEGATIVE Urine Cocaine Screen Neg NEGATIVE Urine Cannabinoids Screen Neg NEGATIVE White Blood Count 12.6 H 4.4-10.8 10^3/uL Red Blood Count 4.23 4.0-5.20 10^6/uL Hemoglobin 9.8 L 12.2-16.2 g/dL Hematocrit 30.3 L 36.0-46.0 % Mean Corpuscular Volume 71.5 L 80.0-100.0 fL Mean Corpuscular Hemoglobin 23.2 L 28.0-32.0 pg Mean Corpuscular Hemoglobin Concent 32.5 32.0-36.0 g/dL Red Cell Distribution Width 16.8 H 11.8-14.3 % Platelet Count 258 140-450 10^3/uL Mean Platelet Volume 7.7 6.9-10.8 fL Neutrophils (%) (Auto) 76.8 37.0-80.0 % Lymphocytes (%) (Auto) 15.7 10.0-50.0 % Monocytes (%) (Auto) 6.7 0.0-12.0 % Eosinophils (%) (Auto) 0.2 0.0-7.0 % Basophils (%) (Auto) 0.6 0.0-2.0 % Neutrophils # (Auto) 9.7 H 1.6-8.6 10 ^3/uL Lymphocytes # (Auto) 2.0 0.4-5.4 10 ^3/uL Monocytes # (Auto) 0.9 0-1.3 10 ^3/uL Eosinophils # (Auto) 0 0-0.8 10 ^3/uL Basophils # (Auto) 0.1 0-0.2 10 ^3/uL Nucleated Red Blood Cells 0.1 % Prothrombin Time 10.1 9.3-11.8 sec Prothrombin Time INR 0.95 0.9-1.15 Activated Partial Thromboplast Time 28.0 24.5-34.5 SEC Sodium Level 142 136-145 mmol/L Potassium Level 3.4 L 3.5-5.1 mmol/L Chloride Level 107 98-107 mmol/L Carbon Dioxide Level 22 20-31 mmol/L Anion Gap 13 5-15 Blood Urea Nitrogen < 5 L 9-23 mg/dL Creatinine 0.59 0.550-1.02 mg/dL Glomerular Filtration Rate Calc 131 >90 mL/min BUN/Creatinine Ratio 8.5 L 10.0-20.0 Serum Glucose 88 74-106 mg/dL Calcium Level 9.4 8.7-10.4 mg/dL Total Bilirubin 0.6 0.2-1.0 mg/dL Aspartate Amino Transferase (AST) 12 L 13-40 U/L Alanine Aminotransferase (ALT) < 9 7-40 U/L Alkaline Phosphatase 148 H 46-116 U/L Total Protein 6.5 5.7-8.2 g/dL Albumin 4.0 3.2-4.8 g/dL Treponema pallidum Antibody Non-reactive Negative Hepatitis C Antibody Negative Negative Assessment Assessment 24yo IUP@38.6wks Active labor Category I EFM AROM, clear fluids GBS negative Plan Plan Expectant management for now due to frequent UCs monitoring per order Pain mgmt, epidural in place Frequent position changes in bed encouraged Limit SVE unless necessary Intrauterine resuscitation PRN Anticipate CNM will consult with Dr. Bhakta PRN Plan discussed with: Patient, Other (Family) Visit Coding OBGYN Date of Service: Oct 04, 2024 Billing Provider: MIGEL CONNELL CNM A&P MECHANIC Common Visit Codes: [id number] INP/OBS CARE(MOD) ANSLEY PRABHAKAR STUDENTMDW Oct 04, 2024 13:18
[2024-10-04] MEDS: LACT. RINGERS/OXYTOCIN 20UNITS 1,000 ML IV ONE (14:00)
[2024-10-04] MEDS: ePHEDrine SULFATE 50 MG/ML AMP IV ONE (15:57)
[2024-10-04] MEDS: LACT. RINGERS/OXYTOCIN 20UNITS 1,000 ML IV SCH (16:20)
[2024-10-04] MEDS: LACT. RINGERS/OXYTOCIN 20UNITS 500 ML IV ONE ×2 (17:40→21:05)
[2024-10-04] MEDS: METHYLERGONOVINE MALEATE 0.2 MG/ML AMP IM ONE ×2 (17:47)
--- NOTE | 2024-10-04 18:01 | LDN2 ---
Labor and Delivery Note Date 10/04/24 Age 24 3 Para now 2 AB 1 EDC 10/12/2024 EGA 38.6 wks Diagnosis Vaginal Delivery: VTX Vacuum Assisted: No Placenta: Spontaneous Sex: Female Weight 3030g Apgars 8/9 Nuchal Cord Transected: No Amniotic Fluid: Clear Anesthesia epidural Episiotomy: No Extension: No Repaired with 3.0 vicryl EBL QBL 500mL Labs Blood Bank 10/04/24 09:30: Blood Type O NEGATIVE Complications none Conditions stable Wet Milling Wheel Operator Somu Comments/Significant Med Yvonne At 1720 this 24yo now delivered a viable Female infant by w/ APGARS 8/9. MAYRA with compound presentation of right arm. Infant placed skin to skin on pts chest. Cord clamped and cut after pulsation ceased. Cord blood sent. Intact 3-vessel cord, placenta delivered spontaneously, Cynthia. Pitocin IV bolus started. Boggy lower uterine segment, IM Methergine given. Placenta sent to pathology. Patient had epidural. Cervix/vagina inspected (intact) and external perineal abrasion present which was repaired with 3-0 vicryl suture. Fundus at U, firm, midline, lower uterine segment firm, and light lochia. QBL 500ml. VSS. Count correct x2. Patient to care and baby to couplet care, both stable. Visit Coding OBGYN Date of Service: Oct 04, 2024 Billing Provider: MIGEL CONNELL CNM FLAT BED OPERATOR Common Visit Codes: PROCEDURE ONLY FLAT BED OPERATOR Procedure Codes: 38582-XNY DEL INCLUDING ANSLEY PRABHAKAR STUDENTMDW Oct 04, 2024 18:01
[2024-10-04] MEDS ORDERED: ACETAMINOPHEN 325 MG TAB PO PRN (18:30)
[2024-10-04] MEDS: ceFAZolin 2 GM/D5W50ml 50 ML IV ONE (18:56)
[2024-10-04] MEDS: POTASSIUM CHL 20 Meq TABLET PO ONE (20:51)
[2024-10-04] MEDS: diphenhdrAMINE HCL 50 MG/1 ML VL IV PRN (21:06)
[2024-10-04] MEDS: DOCUSATE SOD 100 MG CAP PO SCH (22:00)
[2024-10-04 22:50] VITALS: BP 103/55; PULSE 72; TEMP 98.2; O2SAT 96
[2024-10-04] MEDS ORDERED: IBU600T PO (23:54)
[2024-10-04] MEDS ORDERED: PREN-96 PO (23:54)
[2024-10-04] MEDS ORDERED: DOCU-265 PO (23:54)
--- NOTE | 2024-10-05 00:40 | DVHPN2 ---
Progress Note Date Seen: Oct 05, 2024 Subjective Bleeding is less, eating food without issues, denies lightheaded/dizziness, pain well controlled with oral medications, no concerns with urinating, passing flatus, no BM yet, ambulating well, well vital signs Vital Sign Date Time Temp Pulse Resp B/P (MAP) Pulse Ox O2 Delivery O2 Flow Rate FiO2 10/04/24 20:30 Room Air Total Intake and Output 10/04/24 10/04/24 10/05/24 15:00 23:00 07:00 Intake Total 1000 ml Output Total 500 ml Balance 1000 ml -500 ml medications Current Medications Medications Dose Ordered Sig/Umair Route Start Time Stop Time Status Last Admin Dose Admin Nalbuphine HCl 10 mg Q4HP PRN IM 10/04/24 09:15 UNV Nalbuphine HCl 10 mg Q4HP PRN IV 10/04/24 09:15 Cancel Witch Alicia 1 pad PRN PRN TOP 10/04/24 09:15 Sodium Lauryl Sulfate 240 ml PRN PRN TOP 10/04/24 09:15 Benzocaine 1 applic PRN PRN TOP 10/04/24 09:15 Lidocaine HCl 20 ml ONCE PRN IJ 10/04/24 09:15 Cancel Ondansetron HCl 4 mg Q4HP PRN IV 10/04/24 10:15 Cancel Ibuprofen 600 mg Q6HP PRN PO 10/04/24 18:30 Acetaminophen 650 mg Q4HP PRN PO 10/04/24 18:30 Docusate Sodium 200 mg HS PO 10/04/24 22:00 laboratory and microbiology Laboratory Tests 10/04/24 09:30 Test 10/04/24 09:30 Range/Units Serum Glucose 88 74-106 mg/dL Objective VSS Chest: heart sounds normal and lung sounds clear bilaterally Abd: soft, non-tender, fundus at U/firm/midline, active bowel sounds, no rebound or guarding Perineum: sutures intact, edges well approximated, no erythema/edema noted Ext: Non-tender, No edema Lochia: minimal See lab results Problems(with codes): (1) (normal spontaneous vaginal delivery) (2) Iron deficiency anemia of mother during Assessment/Plan A: 24yo now PPD#1 s/p Rh+ Rubella Immune Pain control with PO medications Bowel regimen P: D/C home today Rx sent to pharmacy precautions and preeclampsia warning signs reviewed F/U with [facility] office in 2 weeks Plan discussed with: Patient, Other (Family) Visit Coding OBGYN Date of Service: Oct 05, 2024 Billing Provider: MIGEL CONNELL CNM [employer]ING [employer]ENT Common Visit Codes: [id number] INP/OBS CARE(MOD) ANSLEY PRABHAKAR STUDENTMDW Oct 05, 2024 00:40
[2024-10-05 03:30] VITALS: BP 107/55; PULSE 87; TEMP 98.2; O2SAT 95
[2024-10-05] MEDS: IBUPROFEN 600 MG TAB PO PRN (06:48)
[2024-10-05 07:00] VITALS: BP 108/58; PULSE 85; TEMP 97.8; O2SAT 99
[2024-10-05 07:37] LABS: Basophils # (auto) 0 10 ^3/uL (0-0.2); Basophils % (auto) 0.1 % (0.0-2.0); Eosinophils # (auto) 0 10 ^3/uL (0-0.8); Eosinophils % (auto) 0.1 % (0.0-7.0); Lymphocytes # (auto) 2.1 10 ^3/uL (0.4-5.4); Platelet Count (auto) 218 10^3/uL (140-450)
[2024-10-05 07:44] LABS: Hematocrit 27.2 % (36.0-46.0); Hemoglobin 8.8 g/dL (12.2-16.2); Lymphocytes % (auto) 11.4 % (10.0-50.0); Mean Corpuscular Hemoglobin 23.3 pg (28.0-32.0); Mean Corpuscular Hgb Conc. 32.2 g/dL (32.0-36.0); Mean Corpuscular Volume 72.2 fL (80.0-100.0); Monocytes # (auto) 1.1 10 ^3/uL (0-1.3); Monocytes % (auto) 6.1 % (0.0-12.0); Neutrophils # (auto) 15.2 10 ^3/uL (1.6-8.6); Neutrophils % (auto) 82.3 % (37.0-80.0); Nucleated Red Blood Cells % 0.1 %; Red Blood Cells 3.77 10^6/uL (4.0-5.20); Red Cell Distribution Width 16.9 % (11.8-14.3); White Blood Cell 18.5 10^3/uL (4.4-10.8)
[2024-10-05 15:00] VITALS: BP 99/52; PULSE 78; TEMP 97.9; O2SAT 100
--- NOTE | 2024-10-05 17:18 | DVHDS2 ---
Obstetrics Discharge Summary Obstetrics Discharge Summary Date of Admission: Oct 04, 2024 Date of Discharge: Oct 05, 2024 Reason For Admission: Onset of Labor Procedures: NST Intrapartum Procedures: Spontaneous vaginal deliv Procedures: Antibiotics, Hct/date: (10/05/24), Hgb/date: (10/05/24) Operative Complicat: Others (external perineal abrasion) Discharge Diagnosis: Term -Delivered Discharge Information: Activity (as tolerated, no heavy lifting and nothing in the vagina for 6 weeks), Diet (Routine), Medications (Rx sent), Instructions (Routine), Discharge to (Home), Accompanied by (partner), Discarge date (10/05/24) Visit Coding OBGYN Date of Service: Oct 05, 2024 Billing Provider: MIGEL CONNELL CNM QUARTER [employer]OLDER Common Visit Codes: [id number] DISCH DAY <30MIN MIGEL CONNELL CNM Oct 05, 2024 17:18
== END 2024-10-05 18:07 | disposition home or self-care (01) | DRG 560 ==
LOC: UNDOADMIN 09:05 → LDRP 09:05
PROVIDERS: ADMIT Obstetrics & Gynecology; ATTEND Obstetrics & Gynecology
PROC: 10E0XZZ Delivery of Products of Conception, External Approach (ICD-10-PCS; principal; 2024-10-04)
PROC: 0HQ9XZZ Repair Perineum Skin, External Approach (ICD-10-PCS; 2024-10-04)
PROC: 3E0R3BZ Introduction of Anesthetic Agent into Spinal Canal, Percutaneous Approach (ICD-10-PCS; 2024-10-04)
PROC: 00HU33Z Insertion of Infusion Device into Spinal Canal, Percutaneous Approach (ICD-10-PCS; 2024-10-04)
PROC: 10907ZC Drainage of Amniotic Fluid, Therapeutic from Products of Conception, Via Natural or Artificial Opening (ICD-10-PCS; 2024-10-04)
DX: O32.6XX0 Maternal care for compound presentation, not applicable or unspecified (principal); Z37.0 Single live birth; O71.82 Other specified trauma to perineum and vulva; Z3A.38 38 weeks gestation of pregnancy; Z88.3 Allergy status to other anti-infective agents
CPT/HCPCS: 36415; 59409; 62282; 80053; 80307; 81001; 85025; 85610; 85730; 86780; 86803; 86850; 86870; 86900; 86901; 94760; 96360; 96361; 96365; 96366; 96372; 96374; 96375; G0378; J2405; J2590; J7060